=== PATIENT | female | born 1955 | race Caucasian/White ===

== ENCOUNTER 2022-07-19 07:47 | Outpatient (CLI) | payer MEDICARE, BC, SELFPAY ==
--- NOTE | 2022-07-19 08:15 | CRLHL7_ITS ---
For Patients: As a result of the Century Cures Act, medical imaging exams and procedure reports are released immediately into your electronic medical record. You may view this report before your referring provider. If you have questions, please contact your health care provider. BILATERAL SCREENING MAMMOGRAM WITH COMPUTER-AIDED DETECTION AND TOMOSYNTHESIS TECHNIQUE: CC and MLO views were obtained. These mammographic images have been obtained using full-field digital technique. These mammographic images were interpreted with the benefit of computer-aided detection. Breast Tomosynthesis was used in this interpretation. COMPARISON FILM: 05/18/21, 12/25/18, 11/14/17. FINDINGS: There are scattered areas of fibroglandular density IMPRESSION: There is no radiographic evidence for malignancy. ASSESSMENT: BI-RADS Category 2: Benign RECOMMENDATION: Routine screening mammogram in 1 year. A lay language report of this examination will be provided to the patient. Erik Avalos M.D. Diagnostic Radiologist [email or web address] Transcribed: 1:50 pm DW/Dictated by: Erik Avalos MD @ 07/19/2022 12:23:00 PM (Electronically Signed)
== END 2022-07-19 07:48 | disposition home or self-care (01) ==
PROVIDERS: PCP Physician Assistant Medical; Visit Provider Physician Assistant Medical
DX: Z12.31 Encounter for screening mammogram for malignant neoplasm of breast (principal)
CPT/HCPCS: 77063; 77067

== ENCOUNTER 2022-09-24 08:48 | Outpatient (CLI) | payer MEDICARE, BC, SELFPAY ==
[2022-09-24 13:45] LABS: Albumin* 4.4 g/dL (3.3-5.0); Chloride* 101 mmol/L (96-114); Potassium* 4.1 mmol/L (3.6-5.1); Sodium* 136 mmol/L (135-149)
[2022-09-24 13:47] LABS: Cholesterol* 179 mg/dL (90-199); Creatinine* 0.9 mg/dL (0.5-1.5); Estimated Glomerular Filt Rate 71 ml/min
[2022-09-24 13:48] LABS: Alanine Aminotransferase* 30 U/L (4-35); Alkaline Phosphatase* 78 U/L (40-150); Aspartate Amino Transferase* 32 U/L (12-35); Bilirubin Total* 1.1 mg/dL (0.1-1.5); Blood Urea Nitrogen* 19 mg/dL (7-30); Carbon Dioxide* 30 mmol/L (20-32); Glucose* 104 mg/dL (60-115); Total Protein* 7.5 g/dL (6.0-8.3); Triglycerides* 168 mg/dL (40-149)
[2022-09-24 13:49] LABS: Calcium* 9.4 mg/dL (8.4-10.6); HDL Cholesterol* 49 mg/dL (>=50); LDL Cholesterol Calculated 96 mg/dL (<100)
[2022-09-26 15:12] LABS: Vitamin D, 1,25-Dihydroxy 28.4 pg/mL (19.9-79.3)
== END 2022-09-24 08:49 | disposition home or self-care (01) ==
PROVIDERS: PCP Family Medicine; Visit Provider Family Medicine
DX: M85.89 Other specified disorders of bone density and structure, multiple sites (principal); E78.5 Hyperlipidemia, unspecified; I10 Essential (primary) hypertension; E03.9 Hypothyroidism, unspecified; M85.80 Other specified disorders of bone density and structure, unspecified site; Z13.21 Encounter for screening for nutritional disorder
CPT/HCPCS: 80053; 80061; 82652; 84443

== ENCOUNTER 2022-12-06 07:31 | Outpatient (CLI) | payer MEDICARE, BC, SELFPAY ==
--- NOTE | 2022-12-06 08:00 | CRLHL7_ITS ---
For Patients: As a result of the Century Cures Act, medical imaging exams and procedure reports are released immediately into your electronic medical record. You may view this report before your referring provider. If you have questions, please contact your health care provider. INDICATION: Neck nodule on the left. COMPARISON: None. TECHNIQUE: CT soft tissue neck with IV contrast. FINDINGS: A marker has been placed on the venetian blind washer image over the area of palpable abnormality on the left neck. Correlating with the acquired CT images, there is a nodule measuring approximately 8 mm in maximal diameter (series 3, image 40) which is consistent with a mildly prominent but otherwise normal-sized left level 5 lymph node. There is mild edema in the surrounding fat. Underlying muscular is normal and symmetric to the right. Normal bilateral parotid and submandibular glands. Normal thyroid gland. Scattered small shotty lymph nodes in the remainder of the neck bilaterally. No supraclavicular superior mediastinal adenopathy. Lung apices are clear. Normal alignment of cervical spine. No prevertebral soft tissue swelling. Visualized paranasal sinuses and mastoid air cells are clear. IMPRESSION: 1. At the level of the marker on the left neck, there is a 8 millimeter soft tissue nodule consistent with a mildly prominent left level 5 lymph node. Mild edema in the surrounding fat. 2. No adenopathy elsewhere. 3. Normal deep soft tissues of the neck Please note that all CT scans at this facility use dose modulation, iterative reconstruction, and/or weight-based dosing when appropriate to reduce radiation dose to as low as reasonably achievable. Dictated by Bertram Guzman MD @ 12/06/2022 9:35:42 PM (Electronically Signed)
[2022-12-06 08:03] LABS: Estimated Glomerular Filt Rate 62 ml/min
== END 2022-12-06 07:32 | disposition home or self-care (01) ==
LOC: CT 07:32
PROVIDERS: PCP Family Medicine; Visit Provider Family Medicine
DX: R22.1 Localized swelling, mass and lump, neck (principal)
CPT/HCPCS: 36415; 70491; 82565; Q9967

== ENCOUNTER 2023-10-01 07:34 | Outpatient (CLI) | payer MEDICARE, BC, SELFPAY | END 2023-10-01 07:35 | disposition home or self-care (01) | LOC: NFLDREF 10-02 07:07 | PROVIDERS: PCP Family Medicine; Referring Provider Family Medicine; Visit Provider Family Medicine | DX: E03.9 Hypothyroidism, unspecified (principal); E78.5 Hyperlipidemia, unspecified; R73.03 Prediabetes; I10 Essential (primary) hypertension; M85.89 Other specified disorders of bone density and structure, multiple sites | CPT/HCPCS: 80053; 80061; 82306; 84443 ==

== ENCOUNTER 2023-12-18 13:08 | Outpatient (CLI) | payer MEDICARE, BC, SELFPAY ==
--- OUTSIDE RECORDS SUMMARY | 2023-12-18 13:20 | XMS_ITS | Clinical Summary ---
Author Name Unknown Organization [employer] [facility] [employer] Address [place], [place] [address] Care Team Providers Care Human Resource Consultant Name Role Phone Ellyn Hair MD Primary Care Provider Allergies No known active allergies Medications Medication Sig Dispensed Refills Start Date End Date Status cetirizine (ZYRTEC) 10 mg tablet Take 1 tablet by mouth once daily. 0 10/27/2018 Active fluticasone (50 mcg per actuation) nasal solution (FLONASE)Indications: Post-nasal drip Inhale 2 Sprays into both nostrils once daily. 1 Bottle 11 10/27/2018 Active pravastatin (PRAVACHOL) 20 mg tabletIndications:Hyp ercholesterolemia Take 1 tablet by mouth at bedtime. 90 tablet 3 09/14/2019 Active lisinopril (PRINIVIL; ZESTRIL) 40 mg tabletIndications:Ess ential hypertension Take 1 tablet by mouth once daily. 90 tablet 3 09/14/2019 Active levothyroxine (SYNTHROID) 50 mcg tabletIndications:Hyp othyroidism (acquired) Take 1 tablet by mouth once daily. 90 tablet 3 09/14/2019 Active hydroCHLOROthiazide (HCTZ) 25 mg tabletIndications:Ess ential hypertension Take 1 tablet by mouth once daily. 90 tablet 3 09/14/2019 Active Active Problems Problem Noted Date Diagnosed Date Advanced care planning/counseling discussion Overview: Patient is enrolled in [facility], please call [phone] Essential hypertension 08/26/2018 Hypercholesterolemia 08/26/2018 Hypothyroidism (acquired) 08/26/2018 Immunizations Name Administration Dates Next Due DT (Age < 7 years) 12/06/1985 Influenza, IIV3 (Age 6-35 mos) 06/03/2014 Influenza, IIV4 05/16/2020, 9,06/03/2018,2017 Influenza,CCIIV4 PRESERV FREE 08/09/2016 Td (Age >=7 Years) 02/25/2000 Td, Preservative Free (age > = 7 Years) 08/26/2018 Tdap 04/25/2008 Zoster (Shingrix-RZV, recombinant) 05/16/2020, Zoster (Zostavax-ZVL, live) 08/09/2016 Family History Medical History Relation Name Comments Coronary artery disease Father Hyperlipidemia Father Hypertension Father Stroke Father Coronary artery disease Maternal Aunt Hyperlipidemia Mother Hypertension Mother Multiple sclerosis Mother Obesity Mother Allergies Paternal Grandmother Stroke Sister 1 Multiple sclerosis Sister 2 Relation Name Status Comments Father Maternal Aunt Mother Paternal Grandmother Sister 1 Sister 2 Social History Tobacco Use Types Packs/Day Years Used Date Smoking Tobacco: Never Smokeless Tobacco: Never Tobacco Cessation:Counseling Given: Yes Alcohol Use Standard Drinks/Week Comments Yes 0 (1 standard drink = 0.6 oz pur e alcohol) PHQ-2 Answer Date Recorded PHQ-2 Score 0 10/13/2018 Social Connections Answer Date Recorded Frequency of Communication with Friends and Fami ly Not on file 08/11/2021 Financial Resource Strain Answer Date R ecorded Difficulty of Paying Living Expenses Not on file 08/11/2021 Difficulty of Paying Living Expenses Not on file 08/11/2021 Sex and Gender Information Value Date Recorded Sex Assigned at Not on file Gender Identity Not on file Sexual Orientation Not on file Obstetrics History Para Term AB IAB SAB Ectopic Multiple Livin g Live Births 2 2 2 Date Outcome GA Total Labor Labor/2nd/3rd Weight Sex Delivery Anes PTL Anika A1 A5 Name Cl in 01/12 Term M Vag Patri ck 09/07 Term F Vag Racha el Last Filed Vital Signs Vital Sign Reading Time Taken Comments Blood Pressure 130/78 09/14/2019 7:39 AM SHORER Pulse 72 09/14/2019 7:39 AM SHORER Temperature 36.7 ??C (98 ??F) 10/27/2018 9:37 AM CDT Respiratory Rate 16 08/26/2018 3:50 PM SHORER Oxygen Saturation 97% 08/26/2018 3:50 PM SHORER Inhaled Oxygen Concentration - - Weight 87.1 kg (192 lb) 09/14/2019 7:39 AM SHORER Height 167 cm (5' 5.75) 09/14/2019 7:39 AM SHORER Body Mass Index 31.23 09/14/2019 7:39 AM SHORER Plan of Treatment Health Maintenance Due Date Last Done Comments Depression screening for age 12+ 08/26/2019 08/26/19 19 Mammogram for age 45-75 12/26/2019 12/26/19 19, 12/25/2018, 11/14/2017, Additional history exists BMI (ht and wt on same day) for age 18+ 09/14/2020 09/14/2019, 08/26/2018 DEXA/DXA scan for age 65+ 2021 Pneumococcal series for age 65+ (1 of 1 - PCV) 2021 Fecal testing non-DNA (FIT,FOBT,iFOBT) for age 45-75 05/26/2021 05/26/2020 COVID-19 vaccine series ( - 2022- season) 2023 Influenza for age 65+ 04/11/2024 05/16/2020 , 08/02/2019, 06/03/2018, Additional history exists Lipids for age 45-75 09/14/2024 09/14/2019, 08/26/19 19 Tetanus booster 08/26/2028 08/26/2018, 04/11, 02/25/2000 Tdap Completed 04/25/2008 Hepatitis C screening for ag e 18-79 Completed 08/26/2018 Zoster (shingles) series for age 50+ Completed 05/16/2020, 09/14/2019, 08/09/2016 Procedures Procedure Name Priority Date/Time Associated Diagnosis Comments OCCULT BLOOD IFOBT STOOL Routine 05/26/2020 1:15 PM CDT Screening for colorectal cancer LIPID PANEL W REFLEX MEASURED LDL Routine 09/14/2019 8:11 AM SHORER Hypercholesterolemi a XR MAMMO BILAT SCREENING Routine 12/25/2018 Encounter for screening mammogram for malignant neoplasm of breast ANTI HCV Routine 08/26/2018 4:33 PM SHORER Need for hepatitis C screening test from Last 3 Months or Most Recently Relevant to Health Maintenance Results * OCCULT BLOOD IFOBT STOOL (05/26/2020 1:15 PM CDT) STOOL BLOOD ,IFOBT Negative Negative 06/02/2020 9:20 AM CDT [facility] Stool STOOL SPECIMEN / Unknown Non-Blood / Unknown 05/26/2020 1:15 PM CDT 05/30/2020 1:15 PM CDT Ellyn Hair MD LABORATORY Performing Organization Address City/[facility]/ZIP Co de Phone Number [facility] [address] [place] [address], * LIPID PANEL W REFLEX MEASURED LDL (09/14/2019 8:11 AM SHORER) CHOLESTEROL,TOTAL 169 100 - 199 mg/dL 09/14/2019 8:52 PM SHORER [facility] TRIGLYCERIDES 143 <150 mg/dL 09/14/2019 8:52 PM SHORER [facility] TRAL LAB[facility]ORY HDL CHOLESTEROL 42 >40 mg/dL 0 8:52 PM SHORER [facility] TRAL LABORATORY NON-HDL CHOLESTEROL 127 <145 mg/dl 09/14/2019 8:52 PM SHORER [facility] TRAL LABOR[facility]ORY CHOL/HDL RATIO 4.02 <4.50 09/14/2019 8:52 PM SHORER [facility] TRAL LABORAT[facility] LDL CHOLESTEROL 98 <=130 mg/dL 09/14/2019 8:52 PM SHORER [facility] TRAL LABORATORY PROVIDER ORDERED STATUS RANDOM 09/14/2019 8:52 PM SHORER [facility] TRAL LABORATORY Blood BLOOD SPECIMEN / Unknown Venipuncture / Unknown 09/14/2019 8:11 AM SHORER 09/14/2019 8:11 AM SHORER Ellyn Hair MD CHEMISTRY [facility] [address] [place] [address], [place] * XR MAMMO BILAT SCREENING (12/25/2018) Anatomical Region Laterality Modality BREASTS, Breast Left, Breast Right Bilateral Mammography Ellyn Hair MD MAMMO * ANTI HCV (08/26/2018 4:33 PM SHORER) HEPATITIS C ANTIBODY Non-React elham Non-React elham 08/27/2018 2:59 PM SHORER [facility] [employer] LAB[facility]ATORY[facility] TRAL LABORATORY Comment:Antibodies to HCV no t detected; does not exclude the possibility of exposure to HCV. Blood BLOOD SPECIMEN / Unknown Venipuncture / Unknown 08/26/2018 4:33 PM SHORER 08/26/2018 4:33 PM SHORER Ellyn Hair MD SEND OUTS [facility] [employer]-CENTRAL LABORATORY [address] [place] [address], from Last 3 Months or Most Recently Relevant to Health Maintenance Care Teams Human Resource Consultant Relationship Specialty [place] [address] [place] [address] PCP - General Family Practice 08/26/18
--- OUTSIDE RECORDS SUMMARY | 2023-12-18 13:20 | XMS_ITS | Continuity of Care Document ---
Author Name Unknown Organization [facility] Address [address] [address] [place] [address] Phone Care Team Providers Care Skiving Machine Operator Name Role Phone Unavailable Unavailable Unavailable Advance Directives Directive Yes / No Effective Date File Name No Information Encounters Encounter Description Practice Location Reason(s) For Visit Diagnoses Date Provider Providers Copied on Encounter [facility], [address] [address], [place], [place], [id number], tel:[phone] [facility] Procedures No Information Apr-0 5-201 1 No Information Referring [place]: [place], [address] [place], [address]. tel:[phone] Family History Family Member Type Diagnosis Age At Onset No Information Payers Payer name Insurance type Covered green party ID Authoriza tion(s) No Information Social History Type Description Quantity Date Captured Comments Sex Female Smoking Status No Information Chief Complaint And Reason For Visit No Information Reason For Referral Reason For Referral No Information History Of Present Illness Encounter Date Complaint History Of Prese nt Illness No Information Functional Status Date Functional Assessmen t No Information Instructions Date Instruction Additional Infor mation No Information Assessments Type Assessment Date No Information Patient Care Teams Name Effective Dates (start - stop) Status Members No Information
--- NOTE | 2023-12-18 13:30 | XR_ITS ---
Patient: LOW BORDEN Facility:?[facility] Patient ID:?[id number] Site Patient ID:?[id number]. Site :?[id number] Study:?DEXA-Bone Density-12/18/2023 1:59:54 PM Ordering Physician:CONOR Final Report: DXA BONE MINERAL DENSITY STUDY, 12/18/2023 Current height (in): 66.2. Weight (lb): 170.0. Menopause age: 46. Ethnicity: White. 1. Have you had a previous hip or vertebral fracture? . No. 2. Have you had any fractures during your adult life which did not result from significant trauma (e.g., auto accident)? No. 3. Did either of your parents have a hip fracture? No. 4. Do you smoke? No. 5. Have you ever taken Glucocorticoids? No. 6. Do you have rheumatoid arthritis? No. 7. Do you have secondary osteoporosis? No. 8. Do you drink 3 or more alcoholic drinks per day? No. 9. Are you being treated for osteoporosis? No. 10. Have you ever taken any of the following medications: Actonel, Evista, Fosamax, Miacalcin, Reclast, Boniva, Forteo, HRT (i.e. estrogen/hormone therapy), Protelos, Prolia, Vitamin D, Calcium, other ? please specify. ANSWER: Yes, Vitamin D. Calcium. 11. Do you have any of the following medical conditions: Anorexia or bulimia, asthma or emphysema, end stage renal disease, hyperparathyroidism, any seizure disorders, cancer, inflammatory bowel diseases, hysterectomy, other ? please specify. ANSWER: Yes, Hyperparathyroidism, hysterectomy. 12. What was your maximum height (inches)? 67. 13. Do you perform weight bearing exercise regularly? No. 14. Do you regularly consume dairy products? Yes. 15. Do you drink caffeinated beverages? No. If female: 16. At what age did your period start? 12. 17. Are you premenopausal? No. 18. How many full term pregnancies have you had? 2. 19. Have you ever missed your period for more than 6 months in a row (not including or menopause)? No. TECHNIQUE: Bone mineral density study was performed using the [employer]. FINDINGS: The results of the study expressed as bone mineral density (BMD) are as follows: Lumbar spine L1 to L3: BMD: 0.818 g/cm2. T-score: -1.8. Z-score: 0.1. Neck Left: BMD: 0.647 g/cm2. T-score: -1.8 . Z-score: -0.2. Right: BMD: 0.669 g/cm2. T-score: -1.6 . Z-score: 0.0. Total Left: BMD: 0.862 g/cm2. T-score: -0.7 . Z-score: 0.7. Right: BMD: 0.863 g/cm2. T-score: -0.7 . Z-score: 0.7. IMPRESSION: Osteopenia. *Comparison exams done prior to 01/2020 were performed on different unit, [employer]. COMPARISON: Compared with scan of 10/25/2021, the bone mineral density has increased by 2.7 percent at the spine and increased by 0.3 percent at the hip. Erik Avalos M.D. Diagnostic Radiologist [email or web address] DONNA/madonna D& Transcribed: 1:17 p.m. JR/Dictated by: Erik Avalos MD @ 12/22/2023 8:32:00 AM Signed by:?Erik Avalos MD @12/22/2023 3:03:18 PM (Electronic Signature)
--- NOTE | 2023-12-18 14:00 | MM_ITS ---
Patient: LOW BORDEN Facility:?[facility] Patient ID:[id number] Site Patient ID:?[id number] Site :?[id number] Study:?XRay-Breast Bilateral 3d w/cad-12/18/2023 9:34:45 AM Ordering Physician:Juan Jose Final Report: BILATERAL SCREENING MAMMOGRAM WITH COMPUTER-AIDED DETECTION AND TOMOSYNTHESIS TECHNIQUE: CC and MLO views were obtained. These mammographic images have been obtained using full-field digital technique. These mammographic images were interpreted with the benefit of computer-aided detection. Breast Tomosynthesis was used in this interpretation. COMPARISON FILM: 07/19/22, 05/18/21, 12/25/18. FINDINGS: There are scattered areas of fibroglandular density. IMPRESSION: There is no radiographic evidence for malignancy. ASSESSMENT: BI-RADS Category 2: Benign RECOMMENDATION: Routine screening mammogram in 1 year. A lay language report of this examination will be provided to the patient. Erik Avalos M.D. Diagnostic Radiologist [email or web address] DSM/sp R& Transcribed: 2:45 p.m. SP/Dictated by: Erik Avalos MD @ 12/23/2023 9:57:00 AM Signed by:?Erik Avalos MD @12/23/2023 3:19:24 PM (Electronic Signature)
== END 2023-12-18 13:09 | disposition home or self-care (01) ==
LOC: RAD 13:08
PROVIDERS: PCP Family Medicine; Visit Provider Family Medicine
DX: Z12.31 Encounter for screening mammogram for malignant neoplasm of breast (principal); M85.80 Other specified disorders of bone density and structure, unspecified site; M85.89 Other specified disorders of bone density and structure, multiple sites; Z78.0 Asymptomatic menopausal state
CPT/HCPCS: 77063; 77067; 77080

== ENCOUNTER 2024-10-05 07:35 | Outpatient (CLI) | payer MEDICARE, BC, SELFPAY | END 2024-10-05 07:36 | disposition home or self-care (01) | LOC: NFLDREF 10-06 08:09 | PROVIDERS: PCP Family Medicine; Referring Provider Family Medicine; Visit Provider Family Medicine | DX: R73.01 Impaired fasting glucose (principal); M85.80 Other specified disorders of bone density and structure, unspecified site; I10 Essential (primary) hypertension; E78.5 Hyperlipidemia, unspecified; E03.9 Hypothyroidism, unspecified | CPT/HCPCS: 80053; 80061; 82306; 84443 ==

== ENCOUNTER 2025-02-07 14:44 | Outpatient (CLI) | payer MEDICARE, BC, SELFPAY ==
--- NOTE | 2025-02-07 15:00 | CRLHL7_ITS ---
For Patients: As a result of the Century Cures Act, medical imaging exams and procedure reports are released immediately into your electronic medical record. You may view this report before your referring provider. If you have questions, please contact your health care provider. INDICATION: BILATERAL SCREENING MAMMOGRAM, ASYMPTOMATIC 69 Y/O FEMALE COMPARISON: 12/18/2023, 07/19/2022, 05/18/2021 TECHNIQUE: Digital mammogram in CC and MLO projections including computer-aided detection (CAD) and tomosynthesis. BREAST COMPOSITION: There are scattered areas of fibroglandular density. FINDINGS: No suspicious findings. ASSESSMENT: BI-RADS 2 Benign RECOMMENDATION: Annual screening mammogram. A lay language report of this examination will be provided to the patient. Dictated by: Erik Avalos MD @ 02/08/2025 08:47:08 (Electronically Signed)
--- OUTSIDE RECORDS SUMMARY | 2025-02-08 02:07 | XMS_ITS | Clinical Summary ---
Author Organization [employer] [facility] [employer] [facility] Address [address] [place] [address] Care Team Providers Care Telecom Network Manager Name Role Phone Ellyn Hair MD Primary Care Provider Allergies No known active allergies Medications cetirizine (ZYRTEC) 10 mg tablet Take 1 tablet by mouth once daily. 0 9 Active fluticasone (50 mcg per actuation) nasal solution (FLONASE)Indicati ons:Post-nasal drip Inhale 2 Sprays into both nostrils once daily. 1 Bottle 11 9 Active pravastatin (PRAVACHOL) 20 mg tabletIndications :Hypercholesterol emia Take 1 tablet by mouth at bedtime. 90 tablet 3 0 Active lisinopril (PRINIVIL; ZESTRIL) 40 mg tabletIndications :Essential hypertension Take 1 tablet by mouth once daily. 90 tablet 3 0 Active levothyroxine (SYNTHROID) 50 mcg tabletIndications :Hypothyroidism (acquired) Take 1 tablet by mouth once daily. 90 tablet 3 0 Active hydroCHLOROthiazi de (HCTZ) 25 mg tabletIndications :Essential hypertension Take 1 tablet by mouth once daily. 90 tablet 3 0 Active Active Problems Problem Noted Date Diagnosed Date Advanced care planning/counseling discussion Overview (04/29/2019): Patient is enrolled in [facility], please call [phone] Essential hypertension 08/26/2018 Hypercholesterolemia 08/26/2018 Hypothyroidism (acquired) 08/26/2018 Immunizations Immunization Administration Dates Next Due DT (Age < [...] Paying Living Expenses Not on file 08/11/2021 Comments No Sex and Gender Information Value Date Recorded Sex Assigned at Not on file Legal Sex Female 7:51 PM CDT Gender Identity Not on file Sexual Orientation Not on file 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 Not on file Not on file Obstetrics History Para Term AB IAB SAB Ectopic Multiple Livin g Live Births 2 2 2 Date Outcome GA Total Labor Labor/2nd/3rd Weight Sex Type Anes PTL Anika A1 A5 Name Clin 1976 Term M Vag Zander 1978 Term F Vag Gem Last Filed Vital Signs Vital Sign Reading Time Taken Comments Blood Pressure 130/78 09/14/2019 7:39 AM TILE ERECTOR Pulse 72 09/14/2019 7:39 AM TILE ERECTOR Temperature 36.7 C (98 F) 10/27/2018 9:37 AM CDT Respiratory Rate 16 08/26/2018 3:50 PM TILE ERECTOR Oxygen Saturation 97% 08/26/2018 3:50 PM TILE ERECTOR Inhaled Oxygen Concentration - - Weight 87.1 kg (192 lb) 09/14/2019 7:39 AM TILE ERECTOR Height 167 cm (5' 5.75) 09/14/2019 7:39 AM TILE ERECTOR Body Mass Index 31.23 09/14/2019 7:39 AM TILE ERECTOR Plan of Treatment Health Maintenance Due Date Last Done Comments Pneumococcal series for age 50+ (1 of 1 - PCV) 2006 Depression screening for age 12+ 08/26/2019 08/26/2018 Mammogram for age 45-75 12/26/2019 12/26/19, 12/25/2018, 11/14/2017, Additional history exists BMI (ht and wt on same day) for age 18+ 09/14/2020 09/14/2019, 08/26/2018 DEXA/DXA scan for age 65+ 2021 Fecal testing non-DNA (FIT,FOBT,iFOBT) for age 45-75 05/26/2021 05/26/2020 COVID-19 vaccine series (2023- season) 2024 Lipids for age 45-75 09/14/2024 09/14/2019, 08/26/19 19 Influenza Vaccine (Season Ended) 2025 05/16/2020, 08/02/2019, 06/03/2018, Additional history exists Tetanus booster 08/26/2028 08/26/2018, 04/11, 02/25/2000 RSV vaccine for adults or (1 - 1-dose 75+ series) 2031 Tdap Completed 04/25/2008 Hepatitis C screening for age 18-79 Completed 08/26/2018 Zoster (shingles) series for age 50+ Completed 05/16/2020, 09/14/2019, 08/09/2016 Hepatitis B series for 19+ Aged Out N o longer eligible based on patient's age to complete this topic Procedures Procedure Name Priority Date/Time Associated Diagnosis Comments OCCULT BLOOD IFOBT STOOL Routine 05/26/2020 1:15 PM CDT Screening for colorectal cancer LIPID PANEL W REFLEX MEASURED LDL Routine 09/14/2019 8:11 AM TILE ERECTOR Hypercholesterolemi a XR MAMMO BILAT SCREENING Routine 12/25/2018 Encounter for screening mammogram for malignant neoplasm of breast ANTI HCV Routine 08/26/2018 4:33 PM TILE ERECTOR Need for hepatitis C screening test from Last 3 Months or Most Recently Relevant to Health Maintenance Results * OCCULT BLOOD IFOBT STOOL (05/26/2020 1:15 PM CDT) STOOL BLOOD ,IFOBT Negative Negative 06/02/2020 9:20 AM CDT [facility] Stool STOOL SPECIMEN / Unknown Non-Blood / Unknown 05/26/2020 1:15 PM CDT 05/30/2020 1:15 PM CDT Ellyn Hair MD LABORATORY Final R esult [facility] [address] [place] [address], [place] [phone] * LIPID PANEL W REFLEX MEASURED LDL (09/14/2019 8:11 AM TILE ERECTOR) CHOLESTEROL,TOTAL 169 100 - 199 mg/dL 09/14/2019 8:52 PM TILE ERECTOR [facility] [employer] LABORATORY-[facility] TRAL LABORATORY TRIGLYCERIDES 143 <150 mg/dL 09/14/2019 8:52 PM TILE ERECTOR [facility] TRAL LABORATORY HDL CHOLESTEROL 42 >40 mg/dL 0 8:52 PM TILE ERECTOR [facility] NON-HDL CHOLESTEROL 127 <145 mg/dl 09/14/2019 8:52 PM TILE ERECTOR [facility] TRAL LABORATORY CHOL/HDL RATIO 4.02 <4.50 09/14/2019 8:52 PM TILE ERECTOR [facility] TRAL LABORATORY LDL CHOLESTEROL 98 <=130 mg/dL 09/14/2019 8:52 PM TILE ERECTOR [facility] TRAL LABORATORY PROVIDER ORDERED STATUS RANDOM 09/14/2019 8:52 PM TILE ERECTOR [facility] Blood BLOOD SPECIMEN / Unknown Venipuncture / Unknown 09/14/2019 8:11 AM TILE ERECTOR 09/14/2019 8:11 AM TILE ERECTOR Ellyn Hair MD CHEMISTRY Final R esult Performing Organization Address City/[facility]/ZIP Co de Phone Number [facility] [address] [place] [address], [place] * XR MAMMO BILAT SCREENING (12/25/2018) Anatomical Region Laterality Modality BREASTS, Breast Left, Breast Right Bilateral Mammography Ellyn Hair MD MAMMO Final R esult * ANTI HCV (08/26/2018 4:33 PM TILE ERECTOR) HEPATITIS C ANTIBODY Non-React elham Non-React elham 08/27/2018 2:59 PM TILE ERECTOR [facility] Comment:Antibodies to HCV no t detected; does not exclude the possibility of exposure to HCV. Blood BLOOD SPECIMEN / Unknown Venipuncture / Unknown 08/26/2018 4:33 PM TILE ERECTOR 08/26/2018 4:33 PM TILE ERECTOR Ellyn Hair MD SEND OUTS Final R esult [facility] [address] [place] [address], from Last 3 Months or Most Recently Relevant to Health Maintenance Insurance [facility] Care Teams Telecom Network Manager Relationship Specialty [place] [address] [place] [address] PCP - General Family Practice 08/26/18
== END 2025-02-07 14:45 | disposition home or self-care (01) ==
LOC: MAMMO 14:44
PROVIDERS: PCP Family Medicine; Visit Provider Family Medicine
DX: Z12.31 Encounter for screening mammogram for malignant neoplasm of breast (principal)
CPT/HCPCS: 77063; 77067